=== PATIENT | female | born 1980 | race African-American/Black ===

== ENCOUNTER 2020-11-07 23:00 | Emergency (ER) | payer MEDICARE, MEDICAID, SELFPAY ==
--- NOTE | ~2020-11-07 | XR_ITS ---
EXAMINATION: XR chest 1V portable DATE: 11/07/2020 23:35 INDICATION: Shortness of breath. TECHNIQUE: A single frontal view of the chest was obtained. COMPARISON: None. FINDINGS: The chest demonstrates clear lungs without pneumonia, pleural effusion, or pneumothorax. Th e heart size is normal. There are surgical clips in right neck. IMPRESSION: 1. No acute cardiopulmonary disease. Reviewed, dictated and finalized at location A.
[2020-11-07 23:08] VITALS: BP 155/101; PULSE 72; RESP 22; TEMP 36.6; O2SAT 100
[2020-11-07 23:10] VITALS: BP 155/101; PULSE 88; RESP 22
--- NOTE | 2020-11-07 23:15 | ECG_ITS ---
Measurements Intervals [place] Rate: 76 P: 62 NV: 151 QRS: 32 QRSD: 66 T: 30 QT: 352 QTc: 396 Interpretive Statements SINUS RHYTHM POSSIBLE LEFT ATRIAL ENLARGEMENT BASELINE WANDER- V1 BORDERLINE ECG Electronically Signed On 11-08-2020 5:48:14 CDT by Yuriy Bailey D.O.
[2020-11-07 23:16] VITALS: BP 144/105; PULSE 87; RESP 20; O2SAT 100
--- NOTE | 2020-11-07 23:49 | ED.SOB ---
HPI - SOB/Dyspnea General Chief Complaint: Shortness of Breath/Dyspnea Stated Complaint: sob Time Seen by Provider: 11/07/20 23:32 History of Present Illness HPI Narrative: Patient presents with cough and shortness of breath. She was diagnosed with Covid back in May reports her cough is never completely resolved however over the past 10 days or so her cough has been getting worse and she has noted shortness of breath. She has been seen at multiple facilities and was recently admitted for pneumonia and discharged home. She reports she continues to feel short of breath so she came here for evaluation. she reports overall she just feels like crap Related Data Allergies Allergy/AdvReac Type Severity Reaction Status Date / Time ibuprofen AdvReac Other Verified 11/07/20 23:12 latex AdvReac Other Verified 11/07/20 23:12 Penicillins AdvReac Other Verified 11/07/20 23:12 Review of Systems Review of Systems: CONSTITUTIONAL: Denies fever, chills, or sweats. EYES: Denies visual changes, redness, or discharge. ENT: Denies rhinorrhea, congestion, sore throat, or otalgia. CARDIOVASCULAR: Reports chest pain associated with cough denies palpitations, or edema. RESPIRATORY: Reports cough and shortness of breath GASTROINTESTINAL: Reports upper abdominal pain when coughing denies nausea, vomiting, or diarrhea. GENITOURINARY: Denies dysuria or hematuria. SKIN: Denies rash or itching. MUSCULOSKELETAL: Denies back pain, joint pain. NEUROLOGIC: Denies headache, numbness, dizziness, or weakness. PSYCHIATRIC: Denies anxiety or depression. Exam Narrative: GENERAL: Well-appearing, well-nourished, and in no acute distress. HEAD: Normocephalic, atraumatic. EYES: PERRLA and EOMI. ENT: Nares clear, no rhinorrhea or epistaxis. Mucous membranes moist. NECK: Supple. No masses. No JVD CHEST: Clear to auscultation. No respiratory distress. No wheezes rales or rhonchi HEART: Regular rate and rhythm. No murmur heard. Normal peripheral pulses. ABDOMEN: Soft, nontender, nondistended, normal active bowel sounds. EXTREMITIES: Normal range of motion. No edema. SKIN: Warm, dry, no rash. NEURO: No focal deficits. Alert and oriented x3. PSYCH: Normal mood and affect. Course Reevaluation(s) Reevaluation #1: Patient resting comfortably vital signs are reassuring she continues to have some mild hypertension but there is no tachycardia or hypoxia. Labs imaging reviewed with patient. Work-up was clinically unremarkable. Patient symptoms remain of unclear etiology low concern she has already scheduled follow-up appointment with a manufacturing test engineer. Patient is appropriate for continued outpatient evaluation. Date: 11/08/20 Time: 01:20 Vital Signs Vital signs: Vital Signs Temperature 36.6 C 11/07/20 23:08 Pulse Rate 72 11/07/20 23:08 Respiratory Rate 22 H 11/07/20 23:08 Blood Pressure 155/101 H 11/07/20 23:08 Pulse Oximetry 100 11/07/20 23:08 Temperature 37.2 C 11/08/20 01:41 Pulse Rate 88 11/08/20 01:41 Respiratory Rate 20 11/08/20 01:41 Blood Pressure 136/98 H 11/08/20 01:41 Pulse Oximetry 99 11/08/20 01:41 MDM - SOB/Dyspnea MDM Narrative Medical decision making narrative: H&P as above, vs with mild hypertension, pt looks clinically well, exam reassuring, labs clinically unremarkable, img clinically unremarkable, additional labs/img considered, symptomatic relief available as needed, on reevaluation pt continues to looks clinically well. Symptoms remain of unclear etiology patient may have persistent shortness of breath given her Covid infection back in May, dns pneumonia, PE, pneumothorax. plan to tx/monitor as op w/ pcm f/u findings/plan discussed with pt, pt agree/comfortable with plan, return precautions given Lab Data Result diagrams: 11/08/20 00:19 11/08/20 00:19 Labs: Lab Results 11/08/20 11/08/20 11/08/20 Range/Units 00:19 00:19 00:19 WBC 7.9 (4.5-10.0) K/mm3 RBC 5.02 (4
[2020-11-08 00:36] LABS: Basophils Percent Auto 0.4 % (0.2-1.2); Eosinophils Absolute Auto 0.1 K/mm3 (0-0.3); Eosinophils Percent Auto 1.8 % (0-4.4); Hematocrit 42.7 % (37.0-47.0); Hemoglobin 13.5 g/dL (12.0-15.0); Immature Granulocyte Absolute 0.01 K/mm3 (0.00-0.031); Immature Granulocyte Percent A 0.1 % (0-0.5); Lymphocytes Absolute Auto 4.36 K/mm3 (0.9-3.2); Lymphocytes Percent Auto 55.4 % (18.3-44.2); Mean Corpuscular HGB Conc 31.6 g/dl (32-36); Mean Corpuscular Hemoglobin 26.9 pg (26-34); Mean Corpuscular Volume 85.1 fl (80-100); Mean Platelet Volume 8.5 fl (7.4-10.4); Monocytes Absolute Auto 0.6 K/mm3 (0.1-0.6); Monocytes Percent Auto 7.4 % (2.6-8.5); Neutrophils Absolute Auto 2.8 K/mm3 (1.3-6.7); Neutrophils Percent Auto 34.9 % (45.5-73.1); Platelet Count Result 328 k/mm3 (150-375); Red Blood Count 5.02 M/mm3 (4.2-5.4); Red Cell Distribution Width 15.7 % (11.5-14.5); White Blood Count 7.9 K/mm3 (4.5-10.0)
[2020-11-08] MEDS: SODIUM CHLORIDE 0.9% IV 1,000 ML 999 ML IV CONT (00:37)
[2020-11-08] MEDS: ACETAMINOPHEN 500 MG TABLET 1000 MG PO (00:37)
[2020-11-08 00:38] VITALS: BP 142/100; RESP 20; O2SAT 99
[2020-11-08 00:49] LABS: Anion Gap 9 mmol/L (8-16); Blood Urea Nitrogen 8 mg/dL (7-17); Calcium 9.2 mg/dL (8.4-10.2); Carbon Dioxide 21 mmol/L (22-30); Chloride 109 mmol/L (98-107); Estimated CRCL calculation 120 ml/min; Estimated Glomerular Filt Rate > 60; Glucose 105 mg/dL (65-110); Sodium 139 mmol/L (137-145)
[2020-11-08 00:50] LABS: Alanine Aminotransferase 16 U/L (4-35); Albumin Level 4.2 g/dL (3.5-5.1); Alkaline Phosphatase 66 U/L (38-126); Aspartate Amino Transferase 23 U/L (14-36); Bilirubin,Total 0.3 mg/dL (0.2-1.3)
[2020-11-08 01:09] LABS: D Dimer 0.31 ug/mL (<0.48)
[2020-11-08 01:41] VITALS: BP 136/98; PULSE 88; RESP 20; TEMP 37.2; O2SAT 99
== END 2020-11-08 01:53 | disposition home or self-care (01) ==
PROVIDERS: Emergency Provider Emergency Medicine; PCP Internal Medicine
DX: R06.00 Dyspnea, unspecified (principal); Z86.16 Personal history of COVID-19; R94.31 Abnormal electrocardiogram [ECG] [EKG]
CPT/HCPCS: 36415; 71045; 80048; 80076; 85025; 85380; 93005; 96360; 99284; A9270; J7030